=== PATIENT | female | born 1950 | race Caucasian/White ===

== ENCOUNTER → 2017-04-23 | Outpatient (REF) ==
[~2017-04-23] MED LIST: FEMARA PO; NORCO 325 MG-7.1 TAB PO; WELLBUTRIN 100100 MG PO
== END ==
LOC: WSOH 13:05
DX: Z02.89 Encounter for other administrative examinations (principal)

== ENCOUNTER → 2020-06-12 | Outpatient (CLI) | payer MEDICARE, OTHER | LOC: MC.RAD 08:20 | DX: C50.312 Malignant neoplasm of lower-inner quadrant of left female breast (principal) ==